=== PATIENT | male | born 1955 | race Caucasian/White ===

== ENCOUNTER 2021-12-28 11:59 | Inpatient (IN) | payer MEDICARE, OTHER ==
[~2021-12-28] VITALS: Ht 200.7 cm; Wt 136.1 kg
--- NOTE | 2021-12-28 12:14 | NUR ---
BIB RA 39 FROM HOME,AFRAID THAT HE MIGHT HURT HIS ,STARTED HAVING "THOUGHTS" SINCE HE STARTED SEROQUEL 1 WEEK AGO,HIT HIS 2 DAYS AGO
[2021-12-28 13:02] LABS: BASOPHILS # (AUTO) 0.1 K/uL (0.0-0.2); BASOPHILS % (AUTO) 0.8 % (0.0-2.0); EOSINOPHILS % (AUTO) 1.2 % (0.0-6.0); HEMATOCRIT 37 % (39-51); HEMOGLOBIN 11.6 g/dL (13.5-17.5); LYMPHOCYTES # (AUTO) 0.7 K/uL (0.8-4.8); LYMPHOCYTES % (AUTO) 10.6 % (20.0-44.0); MEAN CORPUSCULAR HGB CONC 32 g/dl (31.0-36.0); MEAN CORPUSCULAR VOLUME 72 fL (80-96); MONOCYTES # (AUTO) 0.7 K/uL (0.1-1.30); MONOCYTES % (AUTO) 10.3 % (2.0-12.0); NEUTROPHILS # (AUTO) 5.2 K/uL (1.8-8.9); NEUTROPHILS % (AUTO) 77.1 % (43.0-81.0); PLATELET COUNT (AUTO) 198 K/uL (150-450); WHITE BLOOD COUNT (AUTO) 6.8 K/uL (4.3-11.0)
[2021-12-28 13:23] LABS: ALANINE AMINOTRANSFERASE 11 U/L (12-78); ALBUMIN 3.3 g/dL (3.4-5.0); ALCOHOL, BLOOD < 3 mg/dL (0-0); ALKALINE PHOSPHATASE 85 U/L (46-116); ASPARTATE AMINOTRANSFERASE 16 U/L (15-37); BILIRUBIN,DIRECT 0.1 mg/dL (0.0-0.2); BILIRUBIN,TOTAL 0.5 mg/dL (0.2-1.0); CALCIUM, SERUM 8.8 mg/dL (8.5-10.1); CARBON DIOXIDE 30 mmol/L (21-32); CHLORIDE 96 mmol/L (98-107); CREATININE 1.1 mg/dL (0.6-1.3); GLUCOSE 183 mg/dL (74-106); POTASSIUM 3.6 mmol/L (3.5-5.1); SODIUM SERUM 133 mmol/L (136-145); TOTAL PROTEIN, SERUM 6.5 g/dL (6.4-8.2); UREA NITROGEN, BLOOD 11 mg/dL (7-18)
[2021-12-28 13:28] LABS: ACETAMINOPHEN 0 ug/ml (10-30)
--- NOTE | 2021-12-28 14:00 | NUR ---
HOME MEDICATION INFORMATION OBTAINED FROM THE PATIENT. PATIENT REQUESTED TO REST AT THIS TIME. PATIENT RIGHTS RESPECTED. PATIENT ASSISTED TO THE ER-LOBBY.
--- NOTE | 2021-12-28 14:00 | NUR ---
MEDICALLY CLEARED PER JAYDEN COWAN PAGED FOR PSYCH EVAL
--- NOTE | 2021-12-28 14:04 | NUR ---
DR. CHOWDHURY FOR PSYCH ADMISSION
[2021-12-28] MEDS ORDERED: LOSA25TA27 PO (14:11)
[2021-12-28] MEDS ORDERED: ATOR40TA PO (14:11)
[2021-12-28] MEDS ORDERED: CLOP75TA15 PO (14:11)
[2021-12-28] MEDS ORDERED: ENTA200T30 PO (14:11)
[2021-12-28] MEDS ORDERED: CARB1TAB21 PO (14:11)
[2021-12-28] MEDS ORDERED: ALPR1TAB7 PO (14:11)
[2021-12-28] MEDS ORDERED: CARB1TAB40 PO (14:11)
[2021-12-28] MEDS ORDERED: CARV3.122 PO (14:11)
[2021-12-28] MEDS ORDERED: DONE10TA44 PO (14:11)
[2021-12-28] MEDS ORDERED: LAMO200T52 PO (14:11)
[2021-12-28] MEDS ORDERED: QUET200T PO (14:11)
[2021-12-28 14:23] LABS: BILIRUBIN,URINE NEGATIVE (NEGATIVE); COLOR,URINE YELLOW (YELLOW); LEUKOCYTE ESTERASE ,URINE NEGATIVE (NEGATIVE); NITRITE, URINE NEGATIVE (NEGATIVE); PH,URINE 7.5 (5.0-8.0); PROTEIN,URINE NEGATIVE (NEGATIVE); UGLUCOSE NEGATIVE (NEGATIVE); UROBILINOGEN,URINE 0.2 EU/dL (0.2)
[2021-12-28] MEDS ORDERED: DULO30CA52 PO (14:25)
[2021-12-28] MEDS ORDERED: DOCU-141 PO (14:26)
[2021-12-28] MEDS ORDERED: SEMA0.25 SQ (14:26)
[2021-12-28] MEDS ORDERED: OXCA300T15 PO (14:26)
[2021-12-28 14:39] LABS: BAND % (MANUAL) 3 % (0.0-5.0); EOSINOPHILS % (MANUAL) 3 % (0-4); LYMPHOCYTES % (MANUAL) 9 % (16-48); MONOCYTES % (MANUAL) 8 % (0-11.0); NEUTROPHILS % (MANUAL) 77 (42-76)
--- NOTE | 2021-12-28 14:42 | NUR ---
RAPID COVID TEST COLLECTED AND SENT
[2021-12-28 14:44] LABS: RBC,URINE NONE SEEN /HPF (0-2); WBC,URINE NONE SEEN /HPF (0-3)
[2021-12-28 14:45] LABS: BACTERIA,URINE None seen /HPF (None Seen); SQUAMOUS EPITHELIAL CELL,UR None Seen /HPF (None Seen)
--- NOTE | 2021-12-28 15:14 | NUR ---
MEDICAL ONCOLOGY PHYSICIAN AT BEDSIDE
--- NOTE | 2021-12-28 16:29 | NUR ---
JAYDEN PET HELP DESK SUPERVISOR AT BEDSIDE.
--- NOTE | 2021-12-28 17:05 | NUR ---
Patient request to not have access to him or his medical records during his time of hospitalization in this hospital
[2021-12-28] MEDS ORDERED: LORAZEPAM 1 MG TABLET PO ONE (17:30)
--- NOTE | 2021-12-28 17:32 | NUR ---
ATTEMPTED TO GIVE REPORT TO THE NURSE, NURSE HUNG UP TO ASKING IF THEY HAVE A BED TO ACCOMMODATE PT WEIGHT, SHE STATED SHE WILL CALLED ME BACK SHORTLY.
[2021-12-28] MEDS ORDERED: LORAZEPAM 1 MG TABLET ONE (17:33)
--- NOTE | 2021-12-28 17:58 | NUR ---
PT TRANSPORT TO [facility] IN STABLE CONDITION.
--- NOTE | 2021-12-28 18:24 | NUR ---
REPORT GIVEN TO RAMONE FOR LEONORA
[2021-12-28] MEDS ORDERED: MAG HYDROX/AL HYDROX/SIMETH 30 ML UDC PO PRN (20:00)
[2021-12-28] MEDS ORDERED: BLOOD SUGAR DIAGNOSTIC 1 EACH STRIP IN ONE (20:00)
[2021-12-28] MEDS ORDERED: ACETAMINOPHEN 325 MG TABLET PO PRN (20:00)
[2021-12-28] MEDS ORDERED: MAGNESIUM HYDROXIDE 30 ML UDC PO PRN (20:00)
[2021-12-28 20:19] VITALS: BP 146/57
--- NOTE | 2021-12-28 20:30 | NUR ---
RN NOTES; PLACED CALLED [facility] ,LEFT MESSAGE FOR SPOOL CLEANER HAND SHARON GOLDBERG FOR NEW ADMISSIONS ,MED RECON , AWITING FOR CALL BACK, CHARGE NURSE MADE AWARE.
[2021-12-28 22:58] VITALS: BP 125/74
--- NOTE | 2021-12-28 23:29 | NUR ---
RN NOTES : ADMISSION NOTES: ADMITTED THIS 66Y/O MALE PATIENT ADMIT FROM [facility]/ ED , INITIALLY FROM HOME PT. ADMITTED TO VOLUNTARY STATUS, PRESENTING WITH INCREASINGLY WORSENING AGGRESSIVE BEHAVIOR OVERNIGHT, FACE TO FACE ASSESSMENT PATIENT IS A&O X 3 ANXIOUS ,EASILY AGITATED, RESTLESS ,PARANOID ,DISHELVED , NEEDY DEMEDNING ,POOR DECISION MAKING , DENIES SI /HI AT THIS TIME, PT. IS POOR HISTORIAN, POOR INSIGHT ,POOR JUDGEMENT , BOTH MD AWARE AND NOTIFIED OF THE ADMISSION, BELONGINGS CONTRABAND WERE DONE , PT. SIGNS ADMISSION CONSENT PAPER ,ENCOURAGED PT. TO TAKE SHOWER, PT. RIGHTS DISCUSS BY FISH AGENT , PROVIDE THE PT. WITH HANDBOOK, AND MEDICATIONS GUIDE, ENVIRONMENTAL SAFETY CHECK DONE, ENCOURAGED PT. VERBALIZED ANY FEELING CONCERN TO STAFF, ORIENT TO UNIT POLICY, NO ACUTE DISTRESS NOTED,VITAL SIGNS WNL ,DENIES ANY PAIN AT THIS TIME,WILL CONTINUE TO MONITOR FOR Q15 SAFETY AND BEHAVIOR.
--- NOTE | 2021-12-28 23:47 | NUR ---
RN NOTES: PT.REFUSED SKIN ASSESSMENT ENCOURAGED X3 EXPLINED RISKS AND BENEFITS BUT PT. STRONGLY REFUSED , PER PT. MY SKIN IS FINE, PT. BEHAVIOR UNCOOPERTIVE AGGRESSIVE PARNOID AT THIS TIME.
--- NOTE | 2021-12-29 05:24 | NUR ---
RN NOTES: REFUSED MRSA NARES SWAB , ENCOURGED PT. STRONGLY REFUSED
--- NOTE | 2021-12-29 06:23 | NUR ---
RN NOTES: MRSA NARES SWAB COLLECTED AND SEND OUT TO THE LAB.
--- NOTE | 2021-12-29 06:30 | NUR ---
RN NOTES :PER PT.NON DISCLOSE MEDICAL/ PSYCH, INFORMATION TO THE .
--- NOTE | 2021-12-29 06:45 | NUR ---
RN NOTES :PER PT.NON DISCLOSURE MEDICAL PSYCH INFORMATION TO THE .
[2021-12-29 07:38] LABS: CREATININE 0.9 mg/dL (0.6-1.3)
[2021-12-29 08:00] VITALS: BP 148/84
--- NOTE | 2021-12-29 09:33 | NUR ---
SW Admit Source: Pt as a voluntary pt. Pt reported he unconsciously pushed off the bed at night when asleep. He reported called [address] pt on [phone] but officers reported pt qualifies for voluntary pt. Patient currently resides at [address] [place] [id number]; ([phone]). Pt lives with Yaz ([phone]). Pt is unsure if he wants to return back home at this time.
--- NOTE | 2021-12-29 09:33 | NUR ---
JUAN Initial Discharge Plan: Patient currently resides at [address] [place] [address], [place], [place] [address]; ([phone]). Pt lives with Yaz ([phone]). Pt is unsure if he wants to return back home at this time. JUAN will work with the MD and treatment team to help coordinate appropriate discharge,
--- NOTE | 2021-12-29 09:45 | NUR ---
DR GUO MADE AWARE OF NEED FOR MEDICATION RECONCILIATION FOR PT. DR NIEVES STATED HE WILL DO THE MEDICATION RECONCILIATION.
--- NOTE | 2021-12-29 10:15 | NUR ---
DR NIEVES CONTACTED AND INFORMED OF PT USE OF PERSONAL CPAP MACHINE. PER DR NIEVES, AFTER BIO-MED CLEARS MACHINE, INFORM RESPIRATORY FOR RECRUITING OPERATIONS CONSULTANT INSTRUCTION.
--- NOTE | 2021-12-29 11:15 | NUR ---
Baboo CLEARED PT'S CPAP MACHINE.
--- NOTE | 2021-12-29 12:21 | NUR ---
JUAN Family Contact: JUAN spoke with patient's Yaz ([phone]) to gather collateral. She reported that pt does not want to speak to her at this time and that she will be respecting his wish. She did report that she is the DPOA and will send the documents. She reported that pt will possibly need a nursing facility. She reported that his behavior surprising and that he has not acted this way. She reported that for the past 6 weeks pt has been bizarre, had a manic episode- running around the house, and assuming that devils are in the house.
--- NOTE | 2021-12-29 14:30 | NUR ---
[facility] DIRECTIVE DELIVERED BY PT'S . PLEASE FIND UNDER LEGAL TAB IN PATIENT'S CHART. "MY AGENTS DO NOT HAVE THE POWER TO WITHDRAW OR WITHHOLD ARTIFICIAL NUTRITION AND HYDRATION, I WISH THAT ARTIFICIAL NUTRITION AND HYDRATION BE PROVIDED IF NECESSARY" "CHOICE TO [facility]" "I GIVE ANY NEEDED ORGANS, TISSUES, OR PARTS"
--- NOTE | 2021-12-29 15:37 | NUR ---
NOTIFIED RN ASSISTANT HEAD CASHIER OF DR GUO'S ORDER FOR PT TO USE OWN CPAP MACHINE AT BED TIME. PER ASSISTANT HEAD CASHIER: NOT AVAILABLE STAFF FOR 1:1 AT THIS TIME. PER ASSISTANT HEAD CASHIER'S SUGGESTION, WILL MOVE PATIENT CLOSER TO NURSING STATION IN ORDER TO SAFELY MONITOR.
--- NOTE | 2021-12-29 16:06 | NUR ---
FILM PROJECTOR OPERATOR CONTACTED AND INFORMED OF 'S ORDER FOR CPAP. PER FILM PROJECTOR OPERATOR: PT IS ON A VOLUNTARY STAY. NO NEED FOR A 1:1 SITTER DUE TOO LOW CENSUS. PLACE PATIENT IN A ROOM BY HIMSELF. WILL ENDORSE TO ARCADE GAME TECHNICIAN FOR CLOSE MONITORING.
[2021-12-29 16:26] VITALS: BP 120/77
[2021-12-29 20:00] VITALS: BP 137/77
[2021-12-29] MEDS: DOCUSATE SODIUM 100 MG CAPSULE PO SCH (21:27)
[2021-12-29] MEDS: CARBIDOPA/LEVODOPA 25/100 MG 1 UDTAB PO SCH (21:27)
[2021-12-29] MEDS: ENTACAPONE 200 MG TABLET PO SCH (21:27)
[2021-12-29] MEDS: ATORVASTATIN 40 MG TABLET PO SCH (21:27)
[2021-12-29] MEDS: CARBIDOPA/LEV CR 50/200 MG 1 UDTAB.SA PO SCH (21:41)
[2021-12-30 08:00] VITALS: BP 139/79
[2021-12-30] MEDS: ENTACAPONE 200 MG TABLET PO SCH ×5 (08:26→21:39)
[2021-12-30] MEDS: DOCUSATE SODIUM 100 MG CAPSULE PO SCH ×4 (08:27→21:39)
[2021-12-30] MEDS: CARBIDOPA/LEVODOPA 25/100 MG 1 UDTAB PO SCH ×4 (08:27→21:39)
[2021-12-30] MEDS: DULOXETINE HCL 30 MG CAPSULE.DR PO SCH ×3 (08:27→09:39)
[2021-12-30] MEDS: CLOPIDOGREL BISULFATE 75 MG TABLET PO SCH (08:27)
[2021-12-30] MEDS: CARVEDILOL 3.125 MG TABLET PO SCH ×2 (08:27→16:15)
[2021-12-30] MEDS: LOSARTAN POTASSIUM 25 MG TABLET PO SCH (08:27)
[2021-12-30] MEDS: LamoTRIgine 100 MG TABLET PO SCH ×2 (08:28→09:00)
--- NOTE | 2021-12-30 08:59 | NUR ---
Called Dr. Bui for the neuro consult and said he will be here tomorrow.
--- NOTE | 2021-12-30 09:45 | NUR ---
After psychology professor spoke to pt. and the pt. agreed to take the med.
--- NOTE | 2021-12-30 11:10 | NUR ---
Dr. Bellamy came and spoke to the pt.
[2021-12-30 16:00] VITALS: BP 157/84
--- NOTE | 2021-12-30 16:44 | NUR ---
called and wants to talk to the nurse in charge of her . Nurse spoke to the pt. if we can disclose information to the and per pt. not to disclose information to the .
[2021-12-30 20:00] VITALS: BP 139/86
[2021-12-30] MEDS: CARBIDOPA/LEV CR 50/200 MG 1 UDTAB.SA PO SCH (21:39)
[2021-12-30] MEDS: ATORVASTATIN 40 MG TABLET PO SCH (21:39)
--- NOTE | 2021-12-31 06:36 | NUR ---
GPS RN CLOSING NOTES: PATIENT IS CURRENTLY SLEEPING IN BED. PATIENT SLEPT 7HR THIS SHIFT. NO BEHAVIORAL ISSUES THIS SHIFT. NO S/S OF DISTRESS NOTED. RESPIRATION EVEN AND UNLABORED WITH EQUAL RISE AND FALL OF THE CHEST, ON ROOM AIR. ALL PATIENT CARE NEEDS HAVE BEEN MET ANTICIPATED. WILL CONTINUE TO MONITOR AND ENDORSE TO AM SHIFT.
--- NOTE | 2021-12-31 06:38 | NUR ---
GPS RN CLOSING NOTES: PATIENT IS CURRENTLY SLEEPING IN BED. PATIENT SLEPT 8HR THIS SHIFT. NO S/S OF DISTRESS NOTED. RESPIRATION EVEN AND UNLABORED WITH EQUAL RISE AND FALL OF THE CHEST, ON ROOM AIR. ALL PATIENT CARE NEEDS HAVE BEEN MET ANTICIPATED. WILL CONTINUE TO MONITOR AND ENDORSE TO AM SHIFT.
[2021-12-31 08:00] VITALS: BP 130/70
[2021-12-31] MEDS: CARBIDOPA/LEVODOPA 25/100 MG 1 UDTAB PO SCH ×4 (08:31→21:37)
[2021-12-31] MEDS: DOCUSATE SODIUM 100 MG CAPSULE PO SCH ×4 (08:31→21:38)
[2021-12-31] MEDS: CLOPIDOGREL BISULFATE 75 MG TABLET PO SCH (08:31)
[2021-12-31] MEDS: LOSARTAN POTASSIUM 25 MG TABLET PO SCH (08:32)
[2021-12-31] MEDS: ENTACAPONE 200 MG TABLET PO SCH ×4 (08:33→21:37)
[2021-12-31] MEDS: CARVEDILOL 3.125 MG TABLET PO SCH ×2 (08:34→16:18)
[2021-12-31] MEDS: DULOXETINE HCL 30 MG CAPSULE.DR PO SCH (08:46)
[2021-12-31] MEDS: LamoTRIgine 100 MG TABLET PO SCH (09:00)
--- NOTE | 2021-12-31 10:18 | NUR ---
RN-NOTES PATIENT REFUSED LAMICTAL 200 MG P.O. STATED" I NEED TO TALK TO THE MEDICAL DOCTOR FIRST".
[2021-12-31 16:00] VITALS: BP 158/96
--- NOTE | 2021-12-31 18:12 | NUR ---
RN-NOTES PATIENT LYING IN BED AWAKE,ALERT X3,GUARDED,NO ACUTE DISTRESS NOTED. NOTED PATIENT WITH EASILY IRRITABLE AND ANGRY BEHAVIOR. AMBULATORY WITH WALKER. PATIENT ABLE TO MAKE NEEDS KNOWN TO THE STAFF.ENCOURAGED TO VERBALIZED FEELINGS AND CONCERN TO THE STAFF AND PARTICIPATES WITH THE GROUP ACTIVITY. ALL NEEDS ATTENDED AND ANTICIPATED. WILL CONT. MONITORING FOR SAFETY AND BEHAVIOR.
--- NOTE | 2021-12-31 19:20 | NUR ---
RN notes Received Pt from morning nurse. Pt is ambulating in the hallway with a steady gait. Pt is alert and orientedX3, calm, cooperative,and compliant with care. On room air. No SOB. No S/S of distress noted. Snacks is provided. Reality orientation is provided. Safety precautions is maintained all the time. Will continue to monitor for behavior and safety and continue to monitor Q 15 mins checks per hospital protocol.
[2021-12-31 20:15] VITALS: BP 153/85
[2021-12-31] MEDS: QUETIAPINE FUMARATE 25 MG TABLET PO SCH (21:37)
[2021-12-31] MEDS: ATORVASTATIN 40 MG TABLET PO SCH (21:37)
[2021-12-31] MEDS: CARBIDOPA/LEV CR 50/200 MG 1 UDTAB.SA PO SCH (21:37)
--- NOTE | 2022-01-01 07:30 | NUR ---
GPS/RN RECEIVED PATIENT RESTING IN THE ROOM NO S/S DISTRESS NOTED AT THIS TIME DENIES SI/HI AVH. DENIED PAIN AND DISCOMFORTS. DAILY MEDS COMPLIANT. AMBULATORY WITH WALKER.ALL NEEDS ATTENDED AND ANTICIPATED. WILL CONTINUE MONITORING FOR SAFETY AND BEHAVIOR Q 15 MIN
[2022-01-01 08:00] VITALS: BP 105/60
[2022-01-01] MEDS: LamoTRIgine 100 MG TABLET PO SCH (09:00)
[2022-01-01] MEDS: LOSARTAN POTASSIUM 25 MG TABLET PO SCH (09:00)
[2022-01-01] MEDS: CARVEDILOL 3.125 MG TABLET PO SCH ×2 (09:00→17:20)
[2022-01-01] MEDS: CLOPIDOGREL BISULFATE 75 MG TABLET PO SCH (09:34)
[2022-01-01] MEDS: DULOXETINE HCL 30 MG CAPSULE.DR PO SCH (09:34)
[2022-01-01] MEDS: DOCUSATE SODIUM 100 MG CAPSULE PO SCH ×4 (09:34→21:11)
[2022-01-01] MEDS: CARBIDOPA/LEVODOPA 25/100 MG 1 UDTAB PO SCH ×3 (09:34→17:19)
[2022-01-01] MEDS: ENTACAPONE 200 MG TABLET PO SCH ×4 (09:34→21:11)
[2022-01-01 16:00] VITALS: BP 130/80
--- NOTE | 2022-01-01 19:26 | NUR ---
GPS RN NOTE, RECEIVED PATIENT AWAKE AND IN BED, NO S/S OR COMPLAINTS OF PAIN AT THIS TIME. PATIENT IS DISPLAYING NO S/S OF APPARENT DISTRESS AT THIS TIME. PATIENT BREATHING IS UNLABORED WITH EQUAL RISE AND FALL OF THE CHEST. PATIENT IS ALERT AND ORIENTED X 3 ON ROOM AIR WITH A SPO2 96%. PATIENT IS COMPLIANT WITH MEDICATIONS, CALM, POLITE, PACING AT TIMES, MAKES NEEDS KNOWN, AND COOPERATIVE. PATIENT DENIES SUICIDAL AND HOMICIDAL IDEATIONS AT THIS TIME. PATIENT ASSISTED WITH TURNING AND REPOSITIONING Q2HR AND PRN FOR COMFORT AND CIRCULATION. PATIENT HAS NO NEEDS AT THIS TIME. PATIENT EDUCATED ON THE USE OF THE CALL ALONZO. PATIENT BED SIDE RAILS UP X 2 FOR SAFETY. PATIENT BED IS LOCKED, LOW, WITH BED ALARM ON. WILL CONTINUE TO MONITOR THIS PATIENT Q15 MINUTES WITH THE HELP OF STAFF TO MAINTAIN SAFETY.
[2022-01-01 20:18] VITALS: BP 127/74
[2022-01-01] MEDS: ATORVASTATIN 40 MG TABLET PO SCH (21:11)
[2022-01-01] MEDS: CARBIDOPA/LEV CR 50/200 MG 1 UDTAB.SA PO SCH (21:11)
[2022-01-01] MEDS: QUETIAPINE FUMARATE 25 MG TABLET PO SCH (21:12)
[2022-01-02 08:00] VITALS: BP 134/94
[2022-01-02] MEDS: CLOPIDOGREL BISULFATE 75 MG TABLET PO SCH (08:15)
[2022-01-02] MEDS: DULOXETINE HCL 30 MG CAPSULE.DR PO SCH (08:16)
[2022-01-02] MEDS: DOCUSATE SODIUM 100 MG CAPSULE PO SCH ×4 (08:16→21:23)
[2022-01-02] MEDS: LOSARTAN POTASSIUM 25 MG TABLET PO SCH (08:16)
[2022-01-02] MEDS: CARBIDOPA/LEVODOPA 25/100 MG 1 UDTAB PO SCH ×2 (08:16→16:18)
[2022-01-02] MEDS: CARVEDILOL 3.125 MG TABLET PO SCH ×2 (08:17→16:21)
[2022-01-02] MEDS: ENTACAPONE 200 MG TABLET PO SCH ×4 (08:17→21:23)
[2022-01-02] MEDS: LamoTRIgine 100 MG TABLET PO SCH (08:24)
--- NOTE | 2022-01-02 09:20 | NUR ---
RN-CO: PATIENT DENIED PAIN AND DISCOMFORTS, GROOMED HIMSELF THIS MORNING AND TOOK HIS MEDICATIONS EXCEPT LAMICTAL. HE STATED " I FEEL A LOT BETTER." HE IS QUIET AND ISOLATIVE, RESPECTFUL TO STAFF.I WILL CONTINUE TO MONITOR.
[2022-01-02 16:00] VITALS: BP 136/76
[2022-01-02 20:50] VITALS: BP 101/56
[2022-01-02] MEDS: ATORVASTATIN 40 MG TABLET PO SCH (21:23)
[2022-01-02] MEDS: QUETIAPINE FUMARATE 25 MG TABLET PO SCH (21:23)
[2022-01-02] MEDS: CARBIDOPA/LEV CR 50/200 MG 1 UDTAB.SA PO SCH (21:23)
--- NOTE | 2022-01-02 22:40 | NUR ---
Patient is compliant with medications,denies pain.Patient appears to be depressed,blunted affect,no verbalizations of thoughts and feelings,sometimes seen on the hallway pacing back and forth,guarded and paranoid upon approach.No s/s of acute distress noted.Will continue to monitor q15 min rounds for safety.
--- NOTE | 2022-01-02 23:28 | NUR ---
Refused skin reassessment x 3.
--- NOTE | 2022-01-03 06:31 | NUR ---
patient still asleep at this time,noted turning and repositioning self in bed.No s/s of acute distress noted.Will continue to monitor q15 min rounds for safety.
[2022-01-03 08:00] VITALS: BP 129/64
[2022-01-03] MEDS: CARBIDOPA/LEVODOPA 25/100 MG 1 UDTAB PO SCH ×2 (08:54→17:43)
[2022-01-03] MEDS: DULOXETINE HCL 30 MG CAPSULE.DR PO SCH (08:54)
[2022-01-03] MEDS: DOCUSATE SODIUM 100 MG CAPSULE PO SCH ×4 (08:54→21:36)
[2022-01-03] MEDS: ENTACAPONE 200 MG TABLET PO SCH ×4 (08:54→21:36)
[2022-01-03] MEDS: LOSARTAN POTASSIUM 25 MG TABLET PO SCH (08:54)
[2022-01-03] MEDS: LamoTRIgine 100 MG TABLET PO SCH ×2 (08:54→09:00)
[2022-01-03] MEDS: CARVEDILOL 3.125 MG TABLET PO SCH ×2 (08:55→17:43)
[2022-01-03] MEDS: CLOPIDOGREL BISULFATE 75 MG TABLET PO SCH (08:55)
--- NOTE | 2022-01-03 11:26 | NUR ---
JUAN Note: SW discussed discharge planning with pt and he stated that he would want a nursing facility to continue his treatment.
--- NOTE | 2022-01-03 11:26 | NUR ---
JUAN Family Contact: JUAN received a call from Yaz LOC ([phone]) and had left a voicemail. JUAN returned the call and left a voicemail.
[2022-01-03 16:00] VITALS: BP 143/74
[2022-01-03 19:54] VITALS: BP 134/79
[2022-01-03] MEDS: ATORVASTATIN 40 MG TABLET PO SCH (21:36)
[2022-01-03] MEDS: QUETIAPINE FUMARATE 25 MG TABLET PO SCH (21:36)
[2022-01-03] MEDS: CARBIDOPA/LEV CR 50/200 MG 1 UDTAB.SA PO SCH (21:36)
[2022-01-04 08:00] VITALS: BP 137/71
[2022-01-04] MEDS: DOCUSATE SODIUM 100 MG CAPSULE PO SCH ×4 (08:52→21:16)
[2022-01-04] MEDS: ENTACAPONE 200 MG TABLET PO SCH ×4 (08:52→21:16)
[2022-01-04] MEDS: LamoTRIgine 100 MG TABLET PO SCH (08:52)
[2022-01-04] MEDS: CLOPIDOGREL BISULFATE 75 MG TABLET PO SCH (08:53)
[2022-01-04] MEDS: CARVEDILOL 3.125 MG TABLET PO SCH ×2 (08:53→16:36)
[2022-01-04] MEDS: LOSARTAN POTASSIUM 25 MG TABLET PO SCH (08:53)
[2022-01-04] MEDS: CARBIDOPA/LEVODOPA 25/100 MG 1 UDTAB PO SCH ×2 (08:53→16:37)
[2022-01-04] MEDS: DULOXETINE HCL 20 MG CAPSULE.DR PO SCH (08:59)
--- NOTE | 2022-01-04 10:02 | NUR ---
RN-CO: PATIENT IS PLEASANT, COOPERATIVE TO CARE. HE STATED HE "FEELS BETTER." HIS TOOK HIS VALUABLES THIS MORNING WITH HIS PERMISSION. HE DENIED FEELING A HOPELESSNESS.
--- NOTE | 2022-01-04 11:15 | NUR ---
JUAN SNF Referral: JUAN sent clinicals to Niraj wells from [facility] ([phone]) for placement option. JUAN sent clinicals H & P, progress notes, and medication list.
--- NOTE | 2022-01-04 11:16 | NUR ---
JUAN Family Contact: JUAN spoke with patient's Yaz MONTERROSO ([phone]) who stated that she does not want pt back home and would want pt to be placed. She stated that she would want a nursing facility for pt.
--- NOTE | 2022-01-04 11:17 | NUR ---
JUAN SNF Contact: JUAN spoke with Niraj wells from [facility] ([phone]) who stated pt is accepted.
--- NOTE | 2022-01-04 11:17 | NUR ---
JUAN Family Contact: JUAN contacted patient's Yaz MONTERROSO ([phone]) and notified that pt is accepted at [facility] and she was agreeable of this.
--- NOTE | 2022-01-04 13:21 | NUR ---
SW Note: Per patient's request, SW sent clinicals to facilities that he wanted. SW contacted [facility] ([phone]) and spoke with Ignacio pimentel who stated that they are outpatient and not inpatient. SW contacted [facility] ([phone]) and spoke with Leonel who stated that they are substance use disorder facility only. SW contacted [facility] ([phone]) and spoke with Maura who stated they are only contracted with [facility] and do not have beds. JUAN contacted [facility] ([phone]) and spoke with Greta who stated that they get referral through [facility]. SW explained that none of the facilities are accepting pt.
--- NOTE | 2022-01-04 13:29 | NUR ---
SNF Referral: JUAN sent clinicals to Maite wells from [facility] ([phone]) for placement option. SW sent H & P, progress notes, and medication list.
--- NOTE | 2022-01-04 13:36 | NUR ---
SNF Referral: JUAN sent clinicals to Aylin from [facility] for placement. SW sent H & P, progress note, and medication list.
--- NOTE | 2022-01-04 13:43 | NUR ---
RN-CO: PATIENT IS PLEASANT, COOPERATIVE TO CARE. HE STATED HE "FEELS BETTER." HIS TOOK HIS VALUABLES THIS MORNING WITH HIS PERMISSION. HE DENIED FEELING A HOPELESSNESS. HE IS VISIBLE IN THE UNIT AND PARTICIPATING IN GROUP ACTIVITIES.
--- NOTE | 2022-01-04 15:22 | NUR ---
SNF Contact: SW received a call from Aylin admin from [facility] who stated that they do not have a bed available.
--- NOTE | 2022-01-04 15:22 | NUR ---
SNFContact: SW received a call from Maite wells from [facility] ([phone]) who stated that they cannot accept pt due to pt not having skilled need.
[2022-01-04 16:00] VITALS: BP 122/54
[2022-01-04 19:44] VITALS: BP 124/67
[2022-01-04 21:00] LABS: IRON, SERUM 18 ug/dl (50-175); TOTAL IRON BINDING CAPACITY 340 ug/dl (250-450)
[2022-01-04] MEDS: CARBIDOPA/LEV CR 50/200 MG 1 UDTAB.SA PO SCH (21:16)
[2022-01-04] MEDS: ATORVASTATIN 40 MG TABLET PO SCH (21:16)
[2022-01-04] MEDS: QUETIAPINE FUMARATE 100 MG TABLET PO SCH (21:17)
--- NOTE | 2022-01-04 21:45 | NUR ---
GPS RN OPENING NOTE RECEIVED PATIENT AMBULATING IN HALLWAY, STEADY GAIT. PATIENT ALERT/ORIENTED X 3, DENIES PAIN AT THIS TIME. PATIENT SEEN GOING INTO ACTIVITY ROOM AND SOCIALIZING WITH OTHER PATIENTS. PATIENT PROVIDED WITH SNACKS AND FLUIDS. PATIENT IS CALM AND COOPERATIVE. SAFETY MEASURES IN PLACE, WILL CONTINUE TO MONITOR PATIENT Q15 MINS FOR SAFETY AND BEHAVIOR
--- NOTE | 2022-01-05 01:32 | NUR ---
GPS RN NOTE PATIENT MOVED TO ROOM 216B BECAUSE HE IS UNABLE TO SLEEP D/T ROOMMATE YELLING, ALL BELONGINGS IN ROOM AND PATIENT LOCKER MOVED TO NEW ROOM BY SNAKE CHARMER'S. WILL CONTINUE TO MONITOR PATIENT
--- NOTE | 2022-01-05 06:35 | NUR ---
GPS RN CLOSING NOTE PATIENT AWAKE SITTING IN CHAIR IN HALLWAY, ALERT/ORIENTED X 3, PATIENT ABLE TO MAKE NEEDS KNOWN. PATIENT STABLE ON RA, NO S/S OF DISTRESS OR SOB NOTED, BREATHING EVEN AND UNLABORED. MEDICATIONS GIVEN ORDERED, PT MED COMPLIANT. PT COOPERATIVE AND CALM THROUGHOUT SHIFT, DENIES SI/HI AT THIS TIME. PATIENT AMBULATORY WITH STEADY GAIT. PATIENT PROVIDED WITH FLUIDS AND SNACK DURING SHIFT, PT NEEDS MET. SAFETY MEASURES MAINTAINED THROUGHOUT SHIFT WITH Q15 MIN CHECKS FOR SAFETY AND BEHAVIOR. WILL ENDORSE PLAN OF CARE TO ONCOMING SHIFT.
[2022-01-05 08:00] VITALS: BP 114/63
[2022-01-05] MEDS: LamoTRIgine 100 MG TABLET PO SCH (08:32)
[2022-01-05] MEDS: CLOPIDOGREL BISULFATE 75 MG TABLET PO SCH (08:32)
[2022-01-05] MEDS: CARVEDILOL 3.125 MG TABLET PO SCH ×2 (08:32→16:07)
[2022-01-05] MEDS: LOSARTAN POTASSIUM 25 MG TABLET PO SCH (08:33)
[2022-01-05] MEDS: CARBIDOPA/LEVODOPA 25/100 MG 1 UDTAB PO SCH ×2 (08:33→16:08)
[2022-01-05] MEDS: DULOXETINE HCL 20 MG CAPSULE.DR PO SCH (08:33)
[2022-01-05] MEDS: DOCUSATE SODIUM 100 MG CAPSULE PO SCH ×4 (08:34→21:41)
[2022-01-05] MEDS: ENTACAPONE 200 MG TABLET PO SCH ×4 (08:34→21:41)
--- NOTE | 2022-01-05 13:52 | NUR ---
SW Note: Niraj from [facility] came to assess pt and speak to pt regarding the facility. Pt was accepting of going to [facility]. SW reported to pt that he has been denied at multiple nursing facilities, he was understanding of this.
[2022-01-05 16:00] VITALS: BP 129/74
--- NOTE | 2022-01-05 16:10 | NUR ---
Individual Counseling: SW met with pt. at bedside. the pt. is alert & oriented. The pt. appears well-groomed, with euthymic mood & affect and slightly irritable at times. Pt. was venting about phone call he just had with his . Pt. may lack insight into situation and stated "I don't know why my is scared of me when I have never hurt her". Pt. stated he cares about his and does not want to hurt her but is sad about the situation. SW allowed for venting used active listening, motivational interviewing and validated his feelings.
--- NOTE | 2022-01-05 19:49 | NUR ---
GPS RN OPENING NOTES: RECEIVED PATIENT IN ROOM, AWAKE, A/O X3. APPROPRIATE AFFECT, CALM AND COOPERATIVE, PASSIVE. PER PATIENT, "MY DAY WAS GREAT". DENIES A/V HALLUCINATIONS, DENIES SI/HI AT THIS TIME. PATIENT IS COMPLIANT WITH TREATMENT REGIMEN. NO S/S OF DISTRESS. RESPIRATION EVEN AND UNLABORED WITH EQUAL RISE AND FALL OF THE CHEST, ON ROOM AIR. OFFERED FLUID AND SNACKS TOLERATED. BED IN LOW LOCKED POSITION, CALL ALONZO WITHIN REACH. WILL CONTINUE TO MONITOR Q15 FOR MOOD, SAFETY AND BEHAVIOR.
[2022-01-05 20:00] VITALS: BP 108/72
[2022-01-05] MEDS: ATORVASTATIN 40 MG TABLET PO SCH (21:41)
[2022-01-05] MEDS: QUETIAPINE FUMARATE 100 MG TABLET PO SCH (21:42)
[2022-01-05] MEDS: CARBIDOPA/LEV CR 50/200 MG 1 UDTAB.SA PO SCH (21:42)
[2022-01-06 08:00] VITALS: BP 141/97
[2022-01-06] MEDS: DOCUSATE SODIUM 100 MG CAPSULE PO SCH ×4 (08:21→20:53)
[2022-01-06] MEDS: DULOXETINE HCL 20 MG CAPSULE.DR PO SCH (08:21)
[2022-01-06] MEDS: ENTACAPONE 200 MG TABLET PO SCH ×4 (08:21→20:53)
[2022-01-06] MEDS: CARBIDOPA/LEVODOPA 25/100 MG 1 UDTAB PO SCH ×2 (08:22→16:13)
[2022-01-06] MEDS: LOSARTAN POTASSIUM 25 MG TABLET PO SCH (08:22)
[2022-01-06] MEDS: LamoTRIgine 100 MG TABLET PO SCH (08:22)
[2022-01-06] MEDS: CARVEDILOL 3.125 MG TABLET PO SCH ×2 (08:23→16:14)
[2022-01-06] MEDS: CLOPIDOGREL BISULFATE 75 MG TABLET PO SCH (08:23)
--- NOTE | 2022-01-06 09:19 | NUR ---
JUAN Coordination of Care: Per pt's request, [facility] ([phone]) stated pt is accepted and that family has been coordinating with the facility. Cost will be 42K and family would need to make payment. JUAN contacted pt's Yaz ([phone]) to confirm. Mika stated pt is accepted. JUAN faxed pt's clinicals ([phone]).
--- NOTE | 2022-01-06 10:24 | NUR ---
JUAN Coordination of Care: From [facility], Mika pimentel ([phone]) stated that he has been in contact with pt and discussed further payment and will pickling grader pt on 01/07/2022 at 12PM.
--- NOTE | 2022-01-06 10:24 | NUR ---
JUAN Family Contact: Patients Yaz MONTERROSO ([phone]) and left a detailed voicemail that pt will be discharged to [facility] 01/06, pt wants to be discharged to this facility. Addendum: 01/06/22 at 1025 by JUAN GERMAIN 01/07
--- NOTE | 2022-01-06 10:31 | NUR ---
SW Friend Contact: SW spoke with patient's friend Aquiles ([phone]) who stated that pt's Yaz and him have been coordinate with each other and she is aware of this facility.
[2022-01-06 16:00] VITALS: BP 114/62
[2022-01-06 20:00] VITALS: BP 125/82
[2022-01-06] MEDS: ATORVASTATIN 40 MG TABLET PO SCH (21:13)
[2022-01-06] MEDS: QUETIAPINE FUMARATE 100 MG TABLET PO SCH (21:13)
[2022-01-06] MEDS: CARBIDOPA/LEV CR 50/200 MG 1 UDTAB.SA PO SCH (21:13)
--- NOTE | 2022-01-06 22:22 | NUR ---
RN NOTES: PATIENT RESTING IN ROOM, CALM COOPERTIVE AT THIS TIME ,COMPLIANT WITH NIGHT MEDS . NO S/S OF DISTRESS. SAFETY PRECAUTIONS IN PLACED , ENCOURAGED PT. TO VERBALIZED ANY FEELING OR CONCERN. ALL NEEDS ATTENDED AND ANTICIPATED, WILL CONTINUE TO MONITOR Q15 FOR MOOD, SAFETY AND BEHAVIOR.
--- NOTE | 2022-01-07 06:38 | NUR ---
RN NOTES: COVID TEST COLLECTED AND SENT TO LAB.
[2022-01-07 08:00] VITALS: BP 140/95
--- NOTE | 2022-01-07 08:08 | NUR ---
Scott Garsia FIELD CROPS HARVEST MACHINE OPERATOR of Dr. Anton gave an order to d/c pt. to [facility] and to follow up with psych and medical doctors. FIELD CROPS HARVEST MACHINE OPERATOR discharged pt. with prescriptions.
--- NOTE | 2022-01-07 08:15 | NUR ---
SW Discharge Note: Patient will be discharged to [facility] located at [address], [place] [address]; ([phone]). Facility will apple picker pt between 12PM. Mika loren ([phone]) stated pt is welcomed today. Patients Yaz MONTERROSO ([phone]) is aware and agreeable of dc. Patient is alert and oriented x4. Patient denies suicidal or homicidal ideation. Patient will follow up with (Customer Service Representative Teacher) Dr. Ball [place] at [address] [place] [address]; and with (Psychiatrist) Dr. Montalvo located at [address] [place] [address]; . Patient presents with euthymic mood and congruent affect.
[2022-01-07] MEDS: DULOXETINE HCL 20 MG CAPSULE.DR PO SCH (08:19)
[2022-01-07] MEDS: ENTACAPONE 200 MG TABLET PO SCH (08:19)
[2022-01-07] MEDS: LamoTRIgine 100 MG TABLET PO SCH ×2 (08:19→09:00)
[2022-01-07] MEDS: CARBIDOPA/LEVODOPA 25/100 MG 1 UDTAB PO SCH (08:19)
[2022-01-07] MEDS: CLOPIDOGREL BISULFATE 75 MG TABLET PO SCH (08:19)
[2022-01-07 08:20] VITALS: BP 140/95
[2022-01-07] MEDS: CARVEDILOL 3.125 MG TABLET PO SCH (08:20)
[2022-01-07] MEDS: LOSARTAN POTASSIUM 25 MG TABLET PO SCH (08:20)
[2022-01-07] MEDS: DOCUSATE SODIUM 100 MG CAPSULE PO SCH (08:21)
--- NOTE | 2022-01-07 11:59 | NUR ---
JUAN Note: SW received a call from patient's Yaz ([phone]) stating that she does not want pt back home. SW advised pt is not coming back home he is going to a facility [facility] of his choice. stated that he wants to come cherry picker operator his items. SW advised for her to leave the house and allow him to cherry picker operator his stuff or call the police if she is feeling unsafe with his presence.
--- NOTE | 2022-01-07 12:00 | NUR ---
GPS/RN PT discharged to [facility] located at [address] [place] [address], [place] [address]; ([phone]).VIA FACILITY ARRANGED TRANSPORTATION. NO SI OR HI AT THE TIME OF D/C. PROPERTY RETURNED. D/C INSTRUCTIONS GIVEN AND UNDERSTOOD. PT AMBULATORY NO DISTRESS, VSS.
--- NOTE | 2022-01-07 12:01 | NUR ---
JUAN Note: JUAN spoke with patient and he stated "I am not threatening my ". He reported that he is going home to shredder picker his items and the facility will take him straight to [facility]. He stated if she is feeling unsafe she can call 911. He reported that he would never make a comment to threaten her. He stated "I asked her to send my items to [facility] and she did not do so".
[2022-01-07] MEDS ORDERED: QUETIAPINE FUMARATE 100 MG TABLET PO SCH (22:00)
== END 2022-01-07 12:00 | DRG 881 ==
LOC: ER 12:01 → GPS 17:27
PROVIDERS: ADMIT Nurse Practitioner Psychiatric/Mental Health; ATTEND Student in an Organized Health Care Education/Training Program
DX: F32.9 Major depressive disorder, single episode, unspecified (principal); F23 Brief psychotic disorder; F29 Unspecified psychosis not due to a substance or known physiological condition; I10 Essential (primary) hypertension; E11.9 Type 2 diabetes mellitus without complications; G40.909 Epilepsy, unspecified, not intractable, without status epilepticus; I67.1 Cerebral aneurysm, nonruptured; Z91.018 Allergy to other foods; Z91.014 Allergy to mammalian meats; Z79.02 Long term (current) use of antithrombotics/antiplatelets; Z79.899 Other long term (current) drug therapy; D63.8 Anemia in other chronic diseases classified elsewhere; G20 Parkinson's disease; Z86.73 Personal history of transient ischemic attack (TIA), and cerebral infarction without residual deficits; Z95.2 Presence of prosthetic heart valve
CPT/HCPCS: 36415; 71045-TC; 80048-TC; 80061-TC; 80076-TC; 80175; 81001; 82565-TC; 82607-TC; 83540-TC; 84484-TC; 85025-TC; 87081-TC; 97112-TC; 97116-TC; 97530-TC; C9803; G0480